=== PATIENT | male | born 1955 | race Two or more races ===

== ENCOUNTER 2016-12-27 21:29 | Emergency (ER) | payer MEDICAID, OTHER ==
[~2016-12-27] VITALS: Ht 160 cm; Wt 68.0 kg
[~2016-12-27 21:29] MED LIST: ALBUAER3 IN; AZITTAB11 PO; NICO2GUM PO; PRED-188 PO
[2016-12-27 21:35] VITALS: BP 126/61
== END 2016-12-27 23:50 | disposition left against medical advice (07) ==
LOC: EDBD 21:29 → ER 21:34
DX: T78.40XA Allergy, unspecified, initial encounter (principal); Z53.21 Procedure and treatment not carried out due to patient leaving prior to being seen by health care provider